=== PATIENT | female | born 1985 | race Caucasian/White ===

== ENCOUNTER 2020-08-27 18:08 | Emergency (ER) | payer MEDICAID ==
[~2020-08-27] VITALS: Ht 160 cm; Wt 72.5 kg
--- NOTE | 2020-08-27 18:19 | PHYS DOC ---
Past History Past Medical History: Anxiety, Arthritis, Fibromyalgia, Other General Adult HPI: HPI: "... I was mad and kicked some wood yesterday.. my Rt. foot still hurts..." " I was mad.. and I kick it repeatedly..." Patient is a 35 year old female who presents with above hx and complaints of Right fool injury., Patient localizes pain in right foot joints and metatarsal area of four and five the right foot. Cap refill is equal to left foot. Sensation is equal to left foot. Patient states pain is exacerbated upon walking. Patient does have past medical history of anxiety, depression, fibromyalgia,. The pt. follows with Damon Spencer. Review of Systems: Review of Systems: Constitutional: Denies fever or chills Eyes: Denies change in visual acuity HENT: Denies nasal congestion or sore throat Respiratory: Denies cough or shortness of breath Cardiovascular: Denies chest pain or edema GI: Denies abdominal pain, nausea, vomiting, bloody stools or diarrhea : Denies dysuria Musculoskeletal: Complains of right foot pain Integument: Denies rash Neurologic: Denies headache, focal weakness or sensory changes Endocrine: Denies polyuria or polydipsia Lymphatic: Denies swollen glands Psychiatric: Denies depression or anxiety Family History: Family History: Noncontributory to presentation Current Medications: Current Meds: See nursing for home meds Allergies: Allergies: No known drug allergies Physical Exam: PE: Constitutional: Well developed, well nourished, no acute distress, non-toxic appearance. [] HENT: Normocephalic, atraumatic, bilateral external ears normal, oropharynx moist, no oral exudates, nose normal. [] Eyes: PERRLA, EOMI, conjunctiva normal, no discharge. Glasses Neck: Normal range of motion, no tenderness, supple, no stridor. [] Cardiovascular:Heart rate regular rhythm, no murmur [] Lungs & Thorax: Bilateral breath sounds equal apex auscultation [] Abdomen: Bowel sounds normal, soft, no tenderness, no masses, no pulsatile jeovanny s. [] Skin: Warm, dry, no erythema, no rash. [] Back: No tenderness, no CVA tenderness. [] Extremities: No tenderness, no cyanosis, no clubbing, ROM intact, no edema. Except findings in right foot as per HPI Neurologic: Alert and oriented X 3, normal motor function, normal sensory function, no focal deficits noted. [] Psychologic: Affect anxious, judgement normal, mood normal. [] EKG: EKG: [] Radiology/Procedures: Radiology/Procedures: [][address] [id number] IMAGING REPORT Signed PATIENT: PEGGY RAZO ACCOUNT: [id number] : 1985 LOCATION: ER AGE: 35 SEX: F EXAM STATUS: REG ER ORD. PHYSICIAN: JENSNE DIAZ MD REASON: injury Rt foot PROCEDURE: FOOT RIGHT 3V EXAM: AP, oblique and lateral views right foot DATE: 08/27/2020 6:32 PM INDICATION: Reason: injury Rt foot / Spl. Instructions: / History: COMPARISON: No Prior FINDINGS/ IMPRESSION: No evidence of acute fracture or dislocation. Old/healed fracture third metatar stevan. No definite tarsometatarsal offset. If there is persistent clinical concern for fracture, follow-up radiographs in 10-14 days is recommended. Joint spaces are preserved without significant degenerative/proliferative change. Soft tissue swelling about the forefoot. Electronically signed by: Elbert Castanon MD (08/27/2020 7:18 PM) [facility] DICTATED AND SIGNED BY: ELBERT CASTANON MD DATE: 08/27/20 1907 CC: JENSEN DIAZ MD; TIFFANY JEFFERS ~MTH0 0 Heart Score: Risk Factors: Risk Factors: DM, Current or recent (<one month) smoker, HTN, HLP, family history of CAD, obesity. Risk Scores: Score 0 - 3: 2.5% MACE over next 6 weeks - Discharge Home Score 4 - 6: 20.3% MACE over next 6 weeks - Admit for Clinical Observation Score 7 - 10: 72.7% MACE over next 6 weeks - Early Invasive Strategies Course & Med Decision Making: Course & Med Decision Making Pertinent Labs and Imaging studies reviewed. (See chart for details) Patient use ice packs as needed. Elevate foot. Wear stiff shoe. Take Tylenol and ibuprofen for pain. Follow-up primary care. Mamadou-ray in 1 to 2 weeks if no improvement to evaluate for missed occult fracture. []1. Rt foot contusion Dragon Disclaimer: Dragon Disclaimer: This electronic medical record was generated, in whole or in part, using a voice recognition dictation system. Departure Departure: Referrals: TIFFANY JEFFERS (PCP) Scripts Hydrocodone/Ibuprofen (HYDROCODONE-IBUPROFEN 7.5-200 ) 1 Each Tablet 1 TAB PO PRN Q6HRS PRN for PAIN, #30 TAB 0 Refills Prov: JENSEN DIAZ MD 08/27/20 Mariano Disclaimer This chart was dictated in whole or in part using Voice Recognition software in a busy, high-work load, and often noisy Emergency Department environment. It may contain unintended and wholly unrecognized errors or omissions. JENSEN DIAZ MD Aug 27, 2020 18:19
[2020-08-27 18:20] VITALS: BP 134/79
--- NOTE | 2020-08-27 19:21 | RAD ---
EXAM: AP, oblique and lateral views right foot DATE: 08/27/2020 6:32 PM INDICATION: Reason: injury Rt foot / Spl. Instructions: / History: COMPARISON: No Prior FINDINGS/ IMPRESSION: No evidence of acute fracture or dislocation. Old/healed fracture third metatarsal. No definite tarso metatarsal offset. If there is persistent clinical concern for fracture, follow-up radiographs in 10- 14 days is recommended. Joint spaces are preserved without significant degenerative/proliferative change. Soft tissue swellin g about the forefoot. Electronically signed by: Elbert Curiel MD (08/27/2020 7:18 PM) [facility]
[2020-08-27] MEDS ORDERED: HYDR-1179 PO (19:23)
== END 2020-08-27 19:46 | disposition home or self-care (01) ==
LOC: ER 18:08
DX: S90.31XA Contusion of right foot, initial encounter (principal); M19.90 Unspecified osteoarthritis, unspecified site; M79.7 Fibromyalgia; W22.8XXA Striking against or struck by other objects, initial encounter; Y93.89 Activity, other specified; Y92.89 Other specified places as the place of occurrence of the external cause; Y99.8 Other external cause status
CPT/HCPCS: 73630; 99283

== ENCOUNTER 2020-09-24 10:11 | Emergency (ER) | payer MEDICAID ==
[~2020-09-24] VITALS: Ht 160 cm; Wt 73.0 kg
[~2020-09-24 10:11] MED LIST: HYDR-1179 PO
[2020-09-24 10:15] VITALS: BP 134/87
--- NOTE | 2020-09-24 10:36 | PHYS DOC ---
Past History Past Medical History: Anxiety, Arthritis, Fibromyalgia, Other Additional Past Medical Histor: sacroileitis, ADHD, agoraphobia Past Surgical History: Tonsillectomy Additional Past Surgical Histo: uterine ablasion, fallopian tubes removed. Alcohol Use: Occasionally Additional Alcohol Information: REPORTS HEAVY DRINKING UNTIL 2 WEEKS AGO, NOW OCCASIONAL Adult General Chief Complaint Chief Complaint: ABSCESS HPI HPI Patient is a 35-year-old female presenting for rectal pain. Patient reports noticing focal rectal pain near her anal sphincter yesterday evening approximately 5 PM after taking a bowel movement. Bowel rest makes better, attempting to have bowel movements and activity make worse. Pain is focal nonradiating and sharp in nature. States pain at rest is 5/10, with bowel movements or wiping it is 8 out of 10. She denies any known rectal bleeding, abscess formation or concerning drainage. Patient had trouble sleeping overnight and called primary care physician's nursing line today and was advised to be seen at nearest ER and upcoming 2 to 3 hours prompting her to travel to our facility for evaluation. Patient denies fever, chills, COVID-19 contact, chest pain, shortness of breath, abdominal pain, nausea or vomit. Patient admits " I think I have IBS because I alternate between episodes of diarrhea and constipation, I have been more constipated recently". She has history of hemorrhoids in the past, none of which have been thrombosed and responded to supportive care practices while she was Review of Systems Review of Systems Fourteen body systems of review of systems have been reviewed. See HPI for pertinent positives and negative responses, other denson all other systems are negative, non-pertinent or non-contributory Allergies Allergies Allergies Coded Allergies Type Severity Reaction Last Updated Verified gabapentin Allergy Unknown 09/24/20 Yes Physical Exam Physical Exam Constitutional: Well developed, well nourished, no acute distress, non-toxic appearance. HENT: Normocephalic, atraumatic, bilateral external ears normal, oropharynx moist, no oral exudates, nose normal. Eyes: PERRLA, EOMI, conjunctiva normal, no discharge. Neck: Normal range of motion, no tenderness, supple, no stridor. Cardiovascular: Heart rate regular per monitor Lungs & Thorax: No respiratory distress or accessory muscle use, bilateral chest rise Abdomen: Abdomen soft, non-tender, bowel sounds present in all quadrants, no guarding or rebound, nonacute abdomen. Rectal exam performed, significant for x3 external hemorrhoids none of which were thrombosed, no signs of abscess, anal sphincter intact Skin: Warm, dry, no erythema, no rash. Back: No tenderness, no CVA tenderness. Extremities: No tenderness, no cyanosis, no clubbing, ROM intact, no edema. Neurologic: Alert and oriented X 3, grossly normal motor & sensory function, no focal deficits noted. Psychologic: Anxious affect and mood Current Patient Data Vital Signs Vital Signs Date Time Temp Pulse Resp B/P (MAP) Pulse Ox O2 Delivery O2 Flow Rate FiO2 09/24/20 10:15 98.2 95 20 134/87 (103) 98 Room Air EKG EKG [] Radiology/Procedures Radiology/Procedures [] Heart Score HEART Score for Chest Pain: HEART Score for Chest Pain Response (Comments) Value History Slighlty/Non-Suspicious 0 Age < 45 0 Risk Factors 1 or 2 Risk Factors 1 Total 1 Risk Factors: Risk Factors: DM, Current or recent (<one month) smoker, HTN, HLP, family history of CAD, obesity. Risk Scores: Risk Factors: DM, Current or recent (<one month) smoker, HTN, HLP, family history of CAD, obesity. Course & Med Decision Making Course & Med Decision Making I discussed most likely diagnosis of external hemorrhoids that are nonthromb osed. I discussed need for supportive care practices and close outpatient follow-up regarding today's visit. I discussed there were no emergent/surgical findings nor need for further diagnostic work-up in ER. Strict return precautions were also discussed at length with good understanding by patient. Patient voiced understanding and agreement with the plan. Patient knows to come back for repeat evaluation if concerning signs or symptoms present prior to outpatient follow-up. Hemodynamically stable, ambulatory and well-appearing at time of disposition. Dragon Disclaimer Dragon Disclaimer This electronic medical record was generated, in whole or in part, using a voice recognition dictation system. Departure Departure: Impression: Primary Impression: External hemorrhoids without complication Disposition: 01 DC HOME SELF CARE/HOMELESS Condition: GOOD Referrals: TIFFANY JEFFERS (PCP) Patient Instructions: Hemorrhoids Additional Instructions: You were seen for hemorrhoids. You should make sure to keep your stools soft by drinking plenty of water and eating foods with plenty of fiber. You should use sitz baths and stool softeners as needed for pain. You can also use topical h emorrhoid preparation creams to alleviate your symptoms as well. As discussed, please contact your primary care physician and discuss ER visit today, you would benefit from repeat evaluation next week. Return to the ED if you develop heavy bleeding, pain, fever, abdominal pain, lightheadedness, chest pain, shortness of breath, or any other new or concerning symptoms. RYAN MEDINA DO Sep 24, 2020 10:36
== END 2020-09-24 10:50 | disposition home or self-care (01) ==
LOC: ER 10:11
DX: K64.4 Residual hemorrhoidal skin tags (principal); F41.9 Anxiety disorder, unspecified; M19.90 Unspecified osteoarthritis, unspecified site; M79.7 Fibromyalgia; F90.9 Attention-deficit hyperactivity disorder, unspecified type; Z88.8 Allergy status to other drugs, medicaments and biological substances
CPT/HCPCS: 99282

== ENCOUNTER 2021-03-01 16:53 | Emergency (ER) | payer MEDICAID ==
[~2021-03-01] VITALS: Ht 160 cm; Wt 71.0 kg
[2021-03-01] MEDS ORDERED: ONDANSETRON PF 4 MG/2 ML VIAL. IVP ONE (17:30)
[2021-03-01] MEDS ORDERED: IV NORMAL SALINE 1,000ML 1,000 ML IV ONE (17:30)
[2021-03-01 17:35] LABS: BASO # 0.1 x10^3/uL (0.0-0.2); BASO % 1 % (0-3); EOS % 0 % (0-3); HEMATOCRIT 43.6 % (36.0-47.0); HEMOGLOBIN 14.5 g/dL (12.0-15.5); LYMPH # 2.4 x10^3/uL (1.0-4.8); LYMPH % 20 % (24-48); MEAN CORPUSCULAR HEMOGLOBIN 28 pg (25-35); MEAN CORPUSCULAR HGB CONC 33 g/dL (31-37); MEAN CORPUSCULAR VOLUME 85 fL (79-100); MONO # 0.8 x10^3/uL (0.0-1.1); MONO % 6 % (0-9); NEUT # 8.7 x10^3uL (1.8-7.7); NEUT % 73 % (31-73); PLATELET COUNT 268 x10^3/uL (140-400); RED BLOOD COUNT 5.15 x10^6/uL (3.50-5.40); RED CELL DISTRIBUTION WIDTH 14.1 % (11.5-14.5); WHITE BLOOD COUNT 11.9 x10^3/uL (4.0-11.0)
--- NOTE | 2021-03-01 17:50 | PHYS DOC ---
Past History Past Medical History: Anxiety, Arthritis, Fibromyalgia, Other Additional Past Medical Histor: sacroileitis, ADHD, agoraphobia (HAYDE BECKFORD APRN) Past Surgical History: Tonsillectomy Additional Past Surgical Histo: uterine ablasion, fallopian tubes removed. (HAYDE BECKFORD APRN) Additional Smoking Information: VAPES Alcohol Use: Heavy (HAYDE BECKFORD APRN) General Adult EDM: Chief Complaint: ABDOMINAL PAIN HPI: HPI: Patient is a 36-year-old female presents with left lower quadrant abdominal pain for 1 week. Patient describes pain as a cramping, intermittent pain. Patient contacted her PCP who put her on a liquid diet for 24 hours. Patient states that her symptoms did improve at that time but came back as soon as she started eating. Patient also reports having diarrhea multiple times a day along with nausea. Denies taking anything for pain. Refusing pain medication at this time. Patient denies vomiting. Patient has history of IBS, PTSD, anxiety and depression. (HAYDE BECKFORD APRN) Review of Systems: Review of Systems: Constitutional: Denies fever or chills Eyes: Denies change in visual acuity HENT: Denies nasal congestion or sore throat Respiratory: Denies cough or shortness of breath Cardiovascular: Denies chest pain or edema GI: Reports abdominal pain, nausea, diarrhea. Denies vomiting, bloody stools : Denies dysuria Musculoskeletal: Denies back pain or joint pain Integument: Denies rash Neurologic: Denies headache, focal weakness or sensory changes Endocrine: Denies polyuria or polydipsia Lymphatic: Denies swollen glands Psychiatric: Reports history of depression or anxiety (HAYDE BECKFORD APRN) Current Medications: Current Meds: Current Medications Medications (Trade) Dose Ordered Sig/Karon Start Time Stop Time Status Last Admin Dose Admin Ondansetron HCl (Zofran) 4 mg 1X ONCE 03/01/21 17:30 03/01/21 17:31 DC 03/01/21 17:33 4 MG Sodium Chloride 1,000 ml @ 1,000 mls/hr 1X ONCE 03/01/21 17:30 03/01/21 18:29 03/01/21 17:33 1,000 MLS/HR (HAYDE BECKFORD APRN) Allergies: Allergies: Allergies Coded Allergies Type Severity Reaction Last Updated Verified amoxicillin Allergy Unknown 03/01/21 Yes gabapentin Allergy Unknown 09/24/20 Yes (HAYDE BECKFORD APRN) Physical Exam: PE: Constitutional: Well developed, well nourished, no acute distress, non-toxic appearance. HENT: Normocephalic, atraumatic, bilateral external ears normal, oropharynx moist, no oral exudates, nose normal. Eyes: PERRLA, EOMI, conjunctiva normal, no discharge. Neck: Normal range of motion, no tenderness, supple, no stridor. Cardiovascular:Heart rate regular rhythm, no murmur Lungs & Thorax: Bilateral breath sounds clear to auscultation Abdomen: Bowel sounds normal, soft, left lower quadrant tenderness Skin: Warm, dry, no erythema, no rash. Back: No tenderness, no CVA tenderness. Extremities: No tenderness, no cyanosis, no clubbing, ROM intact, no edema. Neurologic: Alert and oriented X 3, normal motor function, normal sensory function, no focal deficits noted. (HAYDE BECKFORD APRN) Current Patient Data: Labs: Laboratory Tests Test 03/01/21 17:35 POC Urine HCG, Qualitative hcg negative (Negative) Vital Signs: Vital Signs Date Time Temp Pulse Resp B/P (MAP) Pulse Ox O2 Delivery O2 Flow Rate FiO2 03/01/21 17:37 103 03/01/21 17:00 98.2 18 144/81 (102) 99 Room Air (HAYDE BECKFORD APRN) EKG: EKG: [] (HAYDE BECKFORD APRN) Radiology/Procedures: Radiology/Procedures: []Exam: CT of abdomen and pelvis without contrast INDICATION: Left lower quadrant abdominal pain TECHNIQUE: Sequential axial images through the abdomen and pelvis obtained without IV contrast. Sagittal and coronal reformatted images were reconstructed from the axial data and reviewed. Exposure: One or more of the following in the visualized dose reduction techniques were utilized for this examination: 1. Automated exposure control 2. Adjustment of the MA and/or KV according to patient size 3. Use of iterative of reconstructive technique Comparisons: None FINDINGS: Heart size is normal. No pericardial effusion. Visualized lung bases are clear. No pleural effusion. Evaluation of solid organs is limited secondary to noncontrast technique. Liver, spleen, pancreas, gallbladder and adrenals are unremarkable. No perinephric inflammation or hydronephrosis. No renal or ureteral calculi are identified. Bladder is decompressed not well evaluated. Uterus is not enlarged. A 3.8 cm masslike area anterior to the fundus. Large and small bowel are unremarkable. Appendix is nonidentified. No free intra-abdominal air or fluid. No obstruction. Abdominal aorta has a normal course and caliber. No enlarged intra-abdominal lymph nodes are identified. No suspicious osseous lesions or acute fractures. IMPRESSION: There is a 3.8 x 3.2 cm masslike area anterior to the fundus on the left. This i s nonspecific could relate to the ovary, an exophytic fibroid or even decompressed bowel. Ultrasound is recommended for further evaluation. Electronically signed by: Ever Carpenter MD (03/01/2021 6:25 PM) [facility] (HAYDE BECKFORD APRN) Heart Score: C/O Chest Pain: No Risk Factors: Risk Factors: DM, Current or recent (<one month) smoker, HTN, HLP, family history of CAD, obesity. Risk Scores: Score 0 - 3: 2.5% MACE over next 6 weeks - Discharge Home Score 4 - 6: 20.3% MACE over next 6 weeks - Admit for Clinical Observation Score 7 - 10: 72.7% MACE over next 6 weeks - Early Invasive Strategies (HAYDE BECKFORD APRN) Course & Med Decision Making: Course & Med Decision Making Pertinent Labs and Imaging studies reviewed. (See chart for details) [] 36-year-old female presents with left lower quadrant abdominal pain for 1 week. Patient reports she has had the symptoms in the past and had a colonoscopy and diagnosed with IBS. CT of abdomen pelvis showed there is a 3.8 x 3.2 cm masslike area anterior to the fundus on the left. Ultrasound ordered to rule out acute abnormalities. Ultrasound could not rule out fibroid. MRI is recommended. Informed patient of results. Follow-up needed tomorrow with car packer. UA negative for infection. All other labs unremarkable. (HAYDE BECKFORD APRN) Course & Med Decision Making Did not see or evaluate patient. Agree with NATURAL SCIENCES PROFESSOR's work-up and disposition per note. (KATIE FREGOSO MD) Dragon Disclaimer: Dragon Disclaimer: This electronic medical record was generated, in whole or in part, using a voice recognition dictation system. (BECKFORD,HAYDE STRAIGHT SLICING MACHINE OPERATOR) Departure Departure: Impression: Primary Impression: Left lower quadrant abdominal pain of unknown etiology Disposition: HOME / SELF CARE / HOMELESS Condition: STABLE Referrals: TIFFANY JEFFERS (PCP) Patient Instructions: Abdominal Pain Additional Instructions: You were seen in the emergency room for left lower abdominal pain. Ultrasound could not rule out exact cause of pain. You will need to make a appointment tomorrow with car packer for further evaluation. Please return emergency room with worsening symptoms or concerns. EMERGENCY DEPARTMENT GENERAL DISCHARGE INSTRUCTIONS Thank you for coming to [facility] (ED) today and trusting us with you care. We trust that you had a positivie experience in our Emergency Department. If you wish to speak to the department management, you may call the director at [phone]. YOUR FOLLOW UP INSTRUCTIONS ARE FOLLOWS: 1. Do you have a private Doctor? If you do not have a private doctor, please ask for a resource list of physicians or clinics that may be able to assist you with follow up care. 2. The Emergency Physician has interpreted your x-rays. The X-Ray specialist will also review them. If there is a change in the findings, you will be notified in 48 hours when at all possible. 3. A lab test or culture has been done, your results will be reviewed and you will be notified if you need a change in treatment. ADDITIONAL INSTRUCTIONS AND INFORMATION: 1. Your care today has been supervised by a physician who is specially trained in emergency care. Many problems require more than one evaluation for a complete diagnosis and treatment. We recommend that you schedule your follow up appointment as recommended to ensure complete treatment of you illness or injury. If you are unable to obtain follow up care and continue to have a problem, or if your condition worsens, we recommend that you return to the ED. 2. We are not able to safely determine your condition over the phone nor are we able to give sound medical advice over the phone. For these safety reasons, if you call for medical advice we will ask you to come to the ED for further evaluation. 3. If you have any questions regarding these discharge instructions please call the ED at [phone]. SAFETY INFORMATION: In the interest of safety, wellness, and injury prevention; we encourage you to wear your sealbelt, if you smoke; quite smoking, and we encourage family to use a protective helmet for bicycling and other sporting events that present an increased risk for head injury. IF YOUR SYMPTOMS WORSEN OR NEW SYMPTOMS DEVELOP, OR YOU HAVE CONCERNS ABOUT YOUR CONDITION; OR IF YOUR CONDITION WORSENS WHILE YOU ARE WAITING FOR YOUR FOLLOW UP APPOINTMENT; EITHER CONTACT YOUR PRIMARY CARE DOCTOR, THE PHYSICIAN WHOSE NAME AND NUMBER YOU WERE GIVEN, OR RETURN TO THE ED IMMEDIATELY. Scripts Hydrocodone Bit/Acetaminophen (HYDROCODONE-APAP 5-325 ) 1 Each Tablet 1 TAB PO PRN Q6HRS PRN for PAIN for 3 Days, #12 TAB 0 Refills Prov: HAYDE BECKFORD APRN 03/01/21 HAYDE BECKFORD APRN Mar 01, 2021 17:50 KATIE FREGOSO MD Mar 02, 2021 00:35
[2021-03-01 18:18] LABS: BILIRUBIN,URINE SMALL (NEG); CLARITY,URINE CLEAR; COLOR,URINE YELLOW; GLUCOSE,URINE NEG (NEG)
[2021-03-01 18:19] LABS: NITRITE,URINE NEG (NEG); UROBILINOGEN,URINE 0.2 mg/dL (0.2 mg/dL)
[2021-03-01 18:21] LABS: AMORPHOUS SEDIMENT,UR PRESENT /HPF; BACTERIA,URINE 0 /HPF (0-FEW); RBC,URINE 0 /HPF (0-2); SQUAMOUS EPITHELIAL CELL,UR FEW /LPF; WBC,URINE 0 /HPF (0-4)
[2021-03-01 18:21] LABS: CALCIUM 9.3 mg/dL (8.5-10.1); CREATININE 0.9 mg/dL (0.6-1.0); GFR 71.3; POTASSIUM 3.7 mmol/L (3.5-5.1)
[2021-03-01 18:27] LABS: ALBUMIN/GLOBULIN RATIO 1.1 (1.0-1.7); TOTAL BILIRUBIN 0.5 mg/dL (0.2-1.0); TOTAL PROTEIN 7.7 g/dL (6.4-8.2)
--- NOTE | 2021-03-01 18:27 | RAD ---
Exam: CT of abdomen and pelvis without contrast INDICATION: Left lower quadrant abdominal pain TECHNIQUE: Sequential axial images through the abdomen and pelvis obtained without IV contrast. Sagit radha and coronal reformatted images were reconstructed from the axial data and reviewed. Exposure: One or more of the following in the visualized dose reduction techniques were utilized for this examination: 1. Automated exposure control 2. Adjustment of the MA and/or KV according to patient size 3. Use of iterative of reconstructive technique Comparisons: None FINDINGS: Heart size is normal. No pericardial effusion. Visualized lung bases are clear. No pleural effusion. Evaluation of solid organs is limited secondary to noncontrast technique. Liver, spleen, pancreas, gallbladder and adrenals are unremarkable. No perinephric inflammation or hydronephrosis. No renal or ureteral calculi are identified. Bladder is decompressed not well evaluated. Uterus is not enlarged. A 3.8 cm masslike area anterior t o the fundus. Large and small bowel are unremarkable. Appendix is nonidentified. No free intra-abdominal air or flu id. No obstruction. Abdominal aorta has a normal course and caliber. No enlarged intra-abdominal lymph nodes are identified. No suspicious osseous lesions or acute fractures. IMPRESSION: There is a 3.8 x 3.2 cm masslike area anterior to the fundus on the left. This is nonspecific could r elate to the ovary, an exophytic fibroid or even decompressed bowel. Ultrasound is recommended for fu rther evaluation. Electronically signed by: Ever Carpenter MD (03/01/2021 6:25 PM) [facility]
--- NOTE | 2021-03-01 20:54 | RAD ---
EXAM: ULTRASOUND PELVIS INDICATION: Left lower quadrant pain. COMPARISON: None available. TECHNIQUE: Transabdominal and transvaginal sonography was performed. FINDINGS: The uterus measures 8.1 x 4.5 x 3.6 cm. The endometrium measures 2.6 cm. There is no focal myometria l abnormality The right ovary measures 4.2 x 2.4 x 2.1 cm. Vascular flow identified within the right ovary. The left ovary measures 2.3 x 1.9 x 1.8 cm. Vascular flow identified within the right ovary. There is no free fluid. There is a mass anterior to the uterine fundus measuring 4.4 x 4.2 x 3.6 cm. This mass has internal v ascularity. IMPRESSION: 1. Redemonstration of masslike area anterior to the uterine fundus not definitively characterized as an exophytic fibroid. Further evaluation with pelvic MRI with contrast is recommended. 2. Normal appearance of the ovaries. No evidence for torsion. Electronically signed by: Ever Carpenter MD (03/01/2021 8:52 PM) [facility]
[2021-03-01] MEDS ORDERED: HYDR-2155 PO (21:14)
[2021-03-01] MEDS ORDERED: MORPHINE SULFATE 4 MG/ML DISP.SYRIN. IV ONE (21:15)
[2021-03-01 21:39] VITALS: BP 140/75
== END 2021-03-01 21:45 | disposition home or self-care (01) ==
LOC: ER 16:53
DX: R10.32 Left lower quadrant pain (principal); R19.7 Diarrhea, unspecified; R11.0 Nausea; F41.9 Anxiety disorder, unspecified; M19.90 Unspecified osteoarthritis, unspecified site; M79.7 Fibromyalgia; K58.9 Irritable bowel syndrome, unspecified; F32.9 Major depressive disorder, single episode, unspecified; F43.10 Post-traumatic stress disorder, unspecified; F17.200 Nicotine dependence, unspecified, uncomplicated; F10.20 Alcohol dependence, uncomplicated; Z88.1 Allergy status to other antibiotic agents; Z88.8 Allergy status to other drugs, medicaments and biological substances; Y90.9 Presence of alcohol in blood, level not specified
CPT/HCPCS: 36415; 74176; 76830; 76856; 80053; 81001; 81025; 83690; 85025; 96361; 96374; 96375; 99285; J2270; J2405; J7030

== ENCOUNTER 2021-04-18 16:25 | Emergency (ER) | payer MEDICAID ==
[~2021-04-18] VITALS: Ht 160 cm; Wt 71.0 kg
[~2021-04-18 16:25] MED LIST changes: +HYDR-2155 PO
[2021-04-18 16:34] VITALS: BP 140/75
[2021-04-18] MEDS ORDERED: HYDROcodone/APAP 5/325MG 1 TAB TABLET PO ONE (16:45)
--- NOTE | 2021-04-18 17:00 | RAD ---
XR HAND_RIGHT 3 VIEWS Clinical indications: Reason: hand smashed between table and wall pain Findings: No acute fracture or dislocation or osteolytic process is evident. IMPRESSION: No acute osseous abnormality is evident. Electronically signed by: Tommie Escalera MD (04/18/2021 4:57 PM) [id number]
--- NOTE | 2021-04-18 17:09 | PHYS DOC ---
Past History Past Medical History: Anxiety, Arthritis, Fibromyalgia, Other Additional Past Medical Histor: sacroileitis, ADHD, agoraphobia, PTSD (HAYDE BECKFORD APRN) Past Surgical History: Tonsillectomy Additional Past Surgical Histo: uterine ablasion, fallopian tubes removed. (HAYDE BECKFORD APRN) Additional Smoking Information: Vape Alcohol Use: Occasionally (HAYDE BECKFORD APRN) General Adult EDM: Chief Complaint: HAND PROBLEM HPI: HPI: Patient is a 36-year-old female presents with right hand pain. Patient states that she got her hand stuck between a table in the wall while trying to move it. Patient denies take anything for pain. Patient has full range of motion. History of anxiety, depression, fibromyalgia (HAYDE BECKFORD APRN) Review of Systems: Review of Systems: Constitutional: Denies fever or chills Eyes: Denies change in visual acuity HENT: Denies nasal congestion or sore throat Respiratory: Denies cough or shortness of breath Cardiovascular: Denies chest pain or edema GI: Denies abdominal pain, nausea, vomiting, bloody stools or diarrhea : Denies dysuria Musculoskeletal: Denies back pain or joint pain Integument: Bruising to top of right hand Neurologic: Denies headache, focal weakness or sensory changes Endocrine: Denies polyuria or polydipsia Lymphatic: Denies swollen glands Psychiatric: Reports history of depression anxiety (HAYDE BECKFORD APRN) Current Medications: Current Meds: Current Medications Medications (Trade) Dose Ordered Sig/Karon Start Time Stop Time Status Last Admin Dose Admin Acetaminophen/ Hydrocodone Bitart (Lortab 5/325) 1 tab 1X ONCE 04/18/21 16:45 04/18/21 16:52 DC (HAYDE BECKFORD APRN) Allergies: Allergies: Allergies Coded Allergies Type Severity Reaction Last Updated Verified amoxicillin Allergy Unknown 03/01/21 Yes gabapentin Allergy Unknown 09/24/20 Yes (HAYDE BECKFORD APRN) Physical Exam: PE: Constitutional: Well developed, well nourished, no acute distress, non-toxic appearance. [] HENT: Normocephalic, atraumatic, bilateral external ears normal, oropharynx moist, no oral exudates, nose normal. [] Eyes: PERRLA, EOMI, conjunctiva normal, no discharge. [] Neck: Normal range of motion, no tenderness, supple, no stridor. [] Cardiovascular:Heart rate regular rhythm, no murmur [] Lungs & Thorax: Bilateral breath sounds clear to auscultation [] Abdomen: Bowel sounds normal, soft, no tenderness, no masses, no pulsatile jeovanny s. [] Skin: Warm, dry, no erythema, no rash. [] Back: No tenderness, no CVA tenderness. [] Extremities: Right hand tenderness, no cyanosis, no clubbing, ROM intact, no edema. [] Neurologic: Alert and oriented X 3, normal motor function, normal sensory function, no focal deficits noted. [] Psychologic: Affect normal, judgement normal, mood normal. [] (HAYDE BECKFORD APRN) Current Patient Data: Vital Signs: Vital Signs Date Time Temp Pulse Resp B/P (MAP) Pulse Ox O2 Delivery O2 Flow Rate FiO2 04/18/21 16:34 98.3 84 16 140/75 98 Room Air (HAYDE BECKFORD APRN) EKG: EKG: [] (HAYDE BECKFORD APRN) Radiology/Procedures: Radiology/Procedures: []XR HAND_RIGHT 3 VIEWS Clinical indications: Reason: hand smashed between table and wall pain Findings: No acute fracture or dislocation or osteolytic process is evident. IMPRESSION: No acute osseous abnormality is evident. Electronically signed by: Tommie Escalera MD (04/18/2021 4:57 PM) [id number] (HAYDE BECKFORD APRN) Heart Score: C/O Chest Pain: No Risk Factors: Risk Factors: DM, Current or recent (<one month) smoker, HTN, HLP, family history of CAD, obesity. Risk Scores: Score 0 - 3: 2.5% MACE over next 6 weeks - Discharge Home Score 4 - 6: 20.3% MACE over next 6 weeks - Admit for Clinical Observation Score 7 - 10: 72.7% MACE over next 6 weeks - Early Invasive Strategies (HAYDE BECKFORD APRN) Course & Med Decision Making: Course & Med Decision Making Pertinent Labs and Imaging studies reviewed. (See chart for details) [] 36-year-old female presents with right hand pain. Patient states that she got her hand stuck between a table, and the wall trying to move it. Patient states she did not take anything at home for discomfort. Patient still has full range of motion. Radial pulses intact. Patient given 5/325, hydrocodone for pain. Hand x-rays negative for any acute abnormalities. Patient given rice instructions. Ibuprofen and Tylenol at home. (HAYDE BECKFORD APRN) Course & Med Decision Making Did not see or evaluate patient. 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 (KATIE FREGOSO MD) Dragon Disclaimer: Dragon Disclaimer: This electronic medical record was generated, in whole or in part, using a voice recognition dictation system. (HAYDE BECKFORD APRN) Departure Departure: Impression: Primary Impression: Hand contusion Qualified Codes: S60.221A - Contusion of right hand, initial encounter Disposition: HOME / SELF CARE / HOMELESS Condition: STABLE Referrals: TIFFANY JEFFERS (PCP) Patient Instructions: Hand Contusion, [id number] Additional Instructions: You are seen in the emergency room for right hand pain. X-rays were negative for acute abnormality. Rest, ice, elevate. Use ibuprofen and Tylenol at home for discomfort. Follow up with your PCP if you are still having issues. Turn to emergency room with worsening symptoms or concerns EMERGENCY DEPARTMENT GENERAL DISCHARGE INSTRUCTIONS Thank you for coming to [facility] (ED) today and trusting us with you care. We trust that you had a positivie experience in our Emergency Department. If you wish to speak to the department management, you may call the director at [phone]. YOUR FOLLOW UP INSTRUCTIONS ARE FOLLOWS: 1. Do you have a private Doctor? If you do not have a private doctor, please ask for a resource list of physicians or clinics that may be able to assist you with follow up care. 2. The Emergency Physician has interpreted your x-rays. The X-Ray specialist will also review them. If there is a change in the findings, you will be notified in 48 hours when at all possible. 3. A lab test or culture has been done, your results will be reviewed and you will be notified if you need a change in treatment. ADDITIONAL INSTRUCTIONS AND INFORMATION: 1. Your care today has been supervised by a physician who is specially trained in emergency care. Many problems require more than one evaluation for a complete diagnosis and treatment. We recommend that you schedule your follow up appointment as recommended to ensure complete treatment of you illness or injury. If you are unable to obtain follow up care and continue to have a problem, or if your condition worsens, we recommend that you return to the ED. 2. We are not able to safely determine your condition over the phone nor are we able to give sound medical advice over the phone. For these safety reasons, if you call for medical advice we will ask you to come to the ED for further evaluation. 3. If you have any questions regarding these discharge instructions please call the ED at [phone]. SAFETY INFORMATION: In the interest of safety, wellness, and injury prevention; we encourage you to wear your sealbelt, if you smoke; quite smoking, and we encourage family to use a protective helmet for bicycling and other sporting events that present an increased risk for head injury. IF YOUR SYMPTOMS WORSEN OR NEW SYMPTOMS DEVELOP, OR YOU HAVE CONCERNS ABOUT YOUR CONDITION; OR IF YOUR CONDITION WORSENS WHILE YOU ARE WAITING FOR YOUR FOLLOW UP APPOINTMENT; EITHER CONTACT YOUR PRIMARY CARE DOCTOR, THE PHYSICIAN WHOSE NAME AND NUMBER YOU WERE GIVEN, OR RETURN TO THE ED IMMEDIATELY. HAYDE BECKFORD APRN Apr 18, 2021 17:09 KATIE FREGOSO MD Apr 19, 2021 19:35
[2021-04-18] MEDS ORDERED: ONDANSETRON ODT 4 MG TAB.RAPDIS ONE (17:10)
== END 2021-04-18 17:21 | disposition home or self-care (01) ==
LOC: ER 16:25
DX: S60.221A Contusion of right hand, initial encounter (principal); F41.9 Anxiety disorder, unspecified; M19.90 Unspecified osteoarthritis, unspecified site; M79.7 Fibromyalgia; F17.200 Nicotine dependence, unspecified, uncomplicated; Z88.1 Allergy status to other antibiotic agents; Z88.8 Allergy status to other drugs, medicaments and biological substances; W23.0XXA Caught, crushed, jammed, or pinched between moving objects, initial encounter; Y93.89 Activity, other specified; Y92.89 Other specified places as the place of occurrence of the external cause; Y99.8 Other external cause status
CPT/HCPCS: 73130; 99283

== ENCOUNTER 2021-04-29 19:47 | Emergency (ER) | payer MEDICAID ==
[~2021-04-29] VITALS: Ht 160 cm; Wt 68.2 kg
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
[2021-04-29] MEDS ORDERED: IV RINGERS SOLUTION,LACTATED 1,000 ML IV SCH ×2 (20:00→21:30)
[2021-04-29] MEDS ORDERED: MAGNESIUM HYDROXIDE 2,400 MG/30 ML ORAL.SUSP. PO ONE (20:15)
[2021-04-29] MEDS ORDERED: SODIUM BICARB ADULT 8.4% 50 MEQ/50 ML DISP.SYRIN. IV ONE (20:15)
[2021-04-29 20:40] LABS: BASO % 1 % (0-3); EOS % 0 % (0-3); HEMATOCRIT 43.3 % (36.0-47.0); HEMOGLOBIN 14.2 g/dL (12.0-15.5); LYMPH # 1.6 x10^3/uL (1.0-4.8); LYMPH % 21 % (24-48); MEAN CORPUSCULAR HEMOGLOBIN 28 pg (25-35); MEAN CORPUSCULAR HGB CONC 33 g/dL (31-37); MEAN CORPUSCULAR VOLUME 86 fL (79-100); MONO # 0.5 x10^3/uL (0.0-1.1); MONO % 6 % (0-9); NEUT # 5.3 x10^3uL (1.8-7.7); NEUT % 72 % (31-73); PLATELET COUNT 251 x10^3/uL (140-400); RED BLOOD COUNT 5.06 x10^6/uL (3.50-5.40); RED CELL DISTRIBUTION WIDTH 14.4 % (11.5-14.5); WHITE BLOOD COUNT 7.4 x10^3/uL (4.0-11.0)
[2021-04-29 20:41] LABS: CALCIUM 8.7 mg/dL (8.5-10.1); CREATININE 0.7 mg/dL (0.6-1.0); GFR 95.2; POTASSIUM 3.4 mmol/L (3.5-5.1)
[2021-04-29 20:45] LABS: ETHANOL 10 mg/dL (0-10); SALIC 4.9 mg/dL (2.8-20.0)
[2021-04-29 20:54] LABS: ALBUMIN 4.2 g/dL (3.4-5.0); DIRECT BILIRUBIN 0.1 mg/dL (0.0-0.2); TOTAL BILIRUBIN 0.4 mg/dL (0.2-1.0); TOTAL PROTEIN 7.4 g/dL (6.4-8.2)
--- NOTE | 2021-04-29 21:14 | RAD ---
Exam: Chest one view INDICATION: Dyspnea TECHNIQUE: Frontal view of the chest Comparisons: None FINDINGS: The cardiomediastinal silhouette and pulmonary vessels are within normal limits. The lung and pleural spaces are clear. IMPRESSION: No acute cardiopulmonary process. Electronically signed by: Ever Carpenter MD (04/29/2021 9:12 PM) ANSHUL
[2021-04-29 21:27] LABS: ACETAMIN < 2.0 mcg/mL (10-30)
[2021-04-29] MEDS ORDERED: ONDANSETRON PF 4 MG/2 ML VIAL. IVP PRN (21:30)
--- NOTE | 2021-04-29 21:45 | EKG ---
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
[2021-04-30 01:19] VITALS: BP 111/73
[2021-04-30 01:22] LABS: BARBITURATES NEG (NEG); BENZODIAZEPINES POS (NEG); CANNABINOIDS POS (NEG); COCAINE NEG (NEG); METHADONE NEG (NEG); OPIATES NEG (NEG); PHENCYCLIDINE NEG (NEG)
[2021-04-30 01:29] LABS: AMPHETAMINE/METHAMPHETAMINE POS (NEG)
[2021-04-30] MEDS ORDERED: ARIP5TAB13 PO (01:32)
[2021-04-30] MEDS ORDERED: VENL150C PO (01:32)
[2021-04-30] MEDS ORDERED: DEXT20CA7 PO (01:32)
[2021-04-30] MEDS ORDERED: DIAZ5TAB PO (01:32)
[2021-04-30] MEDS ORDERED: VENL37.5 PO (01:32)
[2021-04-30 01:34] LABS: BILIRUBIN,URINE NEG (NEG); CLARITY,URINE CLEAR; COLOR,URINE YELLOW; GLUCOSE,URINE NEG (NEG); NITRITE,URINE NEG (NEG); UROBILINOGEN,URINE 0.2 mg/dL (0.2 mg/dL)
[2021-04-30 01:35] LABS: BACTERIA,URINE 0 /HPF (0-FEW); RBC,URINE 0 /HPF (0-2); SQUAMOUS EPITHELIAL CELL,UR FEW /LPF; WBC,URINE 0 /HPF (0-4)
--- NOTE | 2021-04-30 02:17 | EKG ---
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
[2021-04-30] MEDS: IPRATRPIUM/ALBUTEROL 0.5/2.5MG 3 ML NEBU. NEB SCH ×3 (06:33→13:52)
[2021-04-30 07:13] VITALS: BP 102/52
[2021-04-30] MEDS ORDERED: LORazepam 1 MG TABLET PO ONE (09:30)
[2021-04-30] MEDS ORDERED: VENLAFAXINE 100 MG TABLET. PO ONE (10:00)
[2021-04-30] MEDS ORDERED: VENLAFAXINE XR 37.5 MG CAP.ER.24H. PO ONE (10:00)
[2021-04-30 11:13] VITALS: BP 107/54
[2021-04-30 13:30] VITALS: BP 113/67
[2021-04-30] MEDS ORDERED: HYDROcodone/APAP 5/325MG 1 TAB TABLET PO ONE (14:00)
== END 2021-04-30 14:01 ==
LOC: ER 19:47
DX: T43.212A Poisoning by selective serotonin and norepinephrine reuptake inhibitors, intentional self-harm, initial encounter (principal); R45.851 Suicidal ideations; F32.9 Major depressive disorder, single episode, unspecified; F41.9 Anxiety disorder, unspecified; M19.90 Unspecified osteoarthritis, unspecified site; M79.7 Fibromyalgia; F43.10 Post-traumatic stress disorder, unspecified; Z20.822 Contact with and (suspected) exposure to COVID-19; Z88.8 Allergy status to other drugs, medicaments and biological substances; Z88.1 Allergy status to other antibiotic agents; Y92.89 Other specified places as the place of occurrence of the external cause
CPT/HCPCS: 36415; 71045; 80048; 80076; 80307; 80329; 81001; 81025; 82550; 83880; 84443; 84484; 85025; 87426; 93005; 96361; 96374; 99285; G0480; J7120; U0003

== ENCOUNTER → 2021-08-05 | Outpatient (CLI) | payer MEDICAID ==
[~2021-08-05] MED LIST changes: +ARIP5TAB13 PO; +DEXT20CA7 PO; +DIAZ5TAB PO; +VENL150C PO; +VENL37.5 PO
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
== END ==
LOC: RAD 10:46
PROVIDERS: ATTEND Nurse Practitioner Family
DX: M79.642 Pain in left hand (principal)
CPT/HCPCS: 73110; 73130

== ENCOUNTER 2021-08-08 15:49 | Emergency (ER) | payer MEDICAID ==
[~2021-08-08] VITALS: Ht 160 cm; Wt 68.2 kg
[2021-08-08 15:49] VITALS: BP 133/75
--- NOTE | 2021-08-08 16:06 | PHYS DOC ---
Past History Past Medical History: Anxiety, Arthritis, Depression, Fibromyalgia, Other Additional Past Medical Histor: sacroileitis, ADHD, agoraphobia, PTSD Past Surgical History: Tonsillectomy Additional Past Surgical Histo: uterine ablasion, fallopian tubes removed. Alcohol Use: Occasionally General Adult EDM: Chief Complaint: HEADACHE HPI: HPI: 36-year-old female presents with headache. Patient headache this morning and has increased throughout the day. It is similar to her previous migraines. She does not frequently get migraines. It is a throbbing pressure sensation in the front of her head with some radiation into the occipital region. She is sensitive to bright light. She took a Flexeril at home. She cannot take any NSAIDs right now because she has a colonoscopy scheduled in 2 days. She does not want to miss this appointment. She has had nausea and vomiting. She denies fever or chills. Review of Systems: Review of Systems: Constitutional: Denies fever or chills Eyes: Denies change in visual acuity HENT: Denies nasal congestion or sore throat Respiratory: Denies cough or shortness of breath Cardiovascular: Denies chest pain or edema GI: Denies abdominal pain, nausea, vomiting, bloody stools or diarrhea : Denies dysuria Musculoskeletal: Denies back pain or joint pain Integument: Denies rash Neurologic: Headache. Denies focal weakness or sensory changes Endocrine: Denies polyuria or polydipsia Lymphatic: Denies swollen glands Psychiatric: Denies depression or anxiety Allergies: Allergies: Allergies Coded Allergies Type Severity Reaction Last Updated Verified amoxicillin Allergy Unknown 04/29/21 Yes clavulanic acid Allergy Unknown 04/29/21 Yes gabapentin Allergy Unknown 04/29/21 Yes Physical Exam: PE: Constitutional: Well developed, well nourished, no acute distress, non-toxic appearance. [] HENT: Normocephalic, atraumatic, bilateral external ears normal, oropharynx moist, no oral exudates, nose normal. [] Eyes: PERRLA, EOMI, conjunctiva normal, no discharge. Photophobia. [] Neck: Normal range of motion, no tenderness, supple, no stridor. [] Cardiovascular: Heart rate regular rhythm, no murmur [] Lungs & Thorax: Bilateral breath sounds clear to auscultation [] Abdomen: Bowel sounds normal, soft, no tenderness, no masses, no pulsatile masses. [] Skin: Warm, dry, no erythema, no rash. [] Back: No tenderness, no CVA tenderness. [] Extremities: No tenderness, no cyanosis, no clubbing, ROM intact, no edema. [] Neurologic: Alert and oriented X 3, normal motor function, normal sensory function, no focal deficits noted. [] Psychologic: Affect normal, judgement normal, mood normal. [] EKG: EKG: [] Radiology/Procedures: Radiology/Procedures: [] Heart Score: C/O Chest Pain: N/A Risk Factors: Risk Factors: DM, Current or recent (<one month) smoker, HTN, HLP, family history of CAD, obesity. Risk Scores: Score 0 - 3: 2.5% MACE over next 6 weeks - Discharge Home Score 4 - 6: 20.3% MACE over next 6 weeks - Admit for Clinical Observation Score 7 - 10: 72.7% MACE over next 6 weeks - Early Invasive Strategies Course & Med Decision Making: Course & Med Decision Making Pertinent Labs and Imaging studies reviewed. (See chart for details) The patient's labs are unremarkable. For her headache I given her 1 L normal saline, 10 mg of Reglan, 25 mg of Benadryl. Her headache has improved. She is stable for discharge at this time. [] Mariano Disclaimer: Mariano Disclaimer: This electronic medical record was generated, in whole or in part, using a voice recognition dictation system. Departure Departure: Impression: Primary Impression: Migraine headache Qualified Codes: G43.019 - Migraine without aura, intractable, without status migrainosus Disposition: HOME / SELF CARE / HOMELESS Condition: IMPROVED Referrals: TIFFANY JEFFERS (PCP) Patient Instructions: Migraine Headache, [id number] TANNER OSBORN DO Aug 08, 2021 16:06
[2021-08-08] MEDS: IV NORMAL SALINE 1,000ML 1,000 ML IV ONE (16:44)
[2021-08-08] MEDS: METOCLOPRAMIDE HCL 10 MG/2 ML VIAL. IVP ONE (16:44)
[2021-08-08] MEDS: diphenhydrAMINE 50 MG/ML VIAL IVP ONE (16:44)
[2021-08-08 17:02] LABS: BASO % 0 % (0-3); EOS % 0 % (0-3); HEMATOCRIT 41.8 % (36.0-47.0); HEMOGLOBIN 13.9 g/dL (12.0-15.5); LYMPH # 1.6 x10^3/uL (1.0-4.8); LYMPH % 23 % (24-48); MEAN CORPUSCULAR HEMOGLOBIN 28 pg (25-35); MEAN CORPUSCULAR HGB CONC 33 g/dL (31-37); MEAN CORPUSCULAR VOLUME 84 fL (79-100); MONO # 0.7 x10^3/uL (0.0-1.1); MONO % 9 % (0-9); NEUT # 4.8 x10^3uL (1.8-7.7); NEUT % 67 % (31-73); PLATELET COUNT 250 x10^3/uL (140-400); RED BLOOD COUNT 4.99 x10^6/uL (3.50-5.40); RED CELL DISTRIBUTION WIDTH 13.8 % (11.5-14.5); WHITE BLOOD COUNT 7.1 x10^3/uL (4.0-11.0)
[2021-08-08 17:12] LABS: CALCIUM 8.7 mg/dL (8.5-10.1); CREATININE 0.8 mg/dL (0.6-1.0); GFR 81.6; POTASSIUM 3.7 mmol/L (3.5-5.1)
[2021-08-08 17:19] LABS: ALBUMIN 3.9 g/dL (3.4-5.0); ALBUMIN/GLOBULIN RATIO 1.1 (1.0-1.7); TOTAL BILIRUBIN 0.2 mg/dL (0.2-1.0); TOTAL PROTEIN 7.6 g/dL (6.4-8.2)
== END 2021-08-08 17:43 | disposition home or self-care (01) ==
LOC: ER 15:49
DX: G43.019 Migraine without aura, intractable, without status migrainosus (principal); F41.9 Anxiety disorder, unspecified; M19.90 Unspecified osteoarthritis, unspecified site; M79.7 Fibromyalgia; F43.10 Post-traumatic stress disorder, unspecified; Z88.1 Allergy status to other antibiotic agents; Z88.8 Allergy status to other drugs, medicaments and biological substances
CPT/HCPCS: 36415; 80053; 85025; 96361; 96374; 96375; 99284; J1200; J2765; J7030

== ENCOUNTER 2021-08-25 22:44 | Emergency (ER) | payer MEDICAID ==
[~2021-08-25] VITALS: Ht 160 cm; Wt 66.3 kg
[2021-08-25 23:02] VITALS: BP 131/96
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
== END 2021-08-26 00:14 | disposition home or self-care (01) ==
LOC: ER 22:44
DX: Z00.8 Encounter for other general examination (principal); F41.9 Anxiety disorder, unspecified; M19.90 Unspecified osteoarthritis, unspecified site; F32.9 Major depressive disorder, single episode, unspecified; M79.7 Fibromyalgia; G43.909 Migraine, unspecified, not intractable, without status migrainosus; F90.2 Attention-deficit hyperactivity disorder, combined type; Z87.891 Personal history of nicotine dependence; Z88.1 Allergy status to other antibiotic agents; Z88.8 Allergy status to other drugs, medicaments and biological substances
CPT/HCPCS: 99281

== ENCOUNTER 2021-10-11 07:54 | Emergency (ER) | payer MEDICAID ==
[~2021-10-11] VITALS: Ht 160 cm; Wt 66.3 kg
[2021-10-11 08:15] VITALS: BP 132/81
[2021-10-11] MEDS ORDERED: CLIN-95 PO (08:21)
--- NOTE | 2021-10-11 08:21 | PHYS DOC ---
Past History Past Medical History: Anxiety, Arthritis, Depression, Fibromyalgia, Migraines, Other Additional Past Medical Histor: sacroileitis, ADHD, agoraphobia, PTSD, borderline personality disorder Past Surgical History: Tonsillectomy Additional Past Surgical Histo: uterine ablasion, fallopian tubes removed. Smoking: Cigarettes, Quit Greater Than 1 Year Alcohol Use: Occasionally Drug Use: None General Adult EDM: Chief Complaint: DENTAL PROBLEM HPI: HPI: 36-year-old female presents with right upper dental pain. The patient has a molar with a crown on it but the gums have receded. She is scheduled to see her dentist on Monday. She presents today because she had a tough time sleeping last night due to pain and swelling of the right side of her face. She is mostl y concerned about infection due to the swelling. She would like to start an antibiotic if necessary prior to her dental visit. She has no other complaints this time. Review of Systems: Review of Systems: Constitutional: Denies fever or chills Eyes: Denies change in visual acuity HENT: Right upper dental pain Respiratory: Denies cough or shortness of breath Cardiovascular: Denies chest pain or edema GI: Denies abdominal pain, nausea, vomiting, bloody stools or diarrhea : Denies dysuria Musculoskeletal: Denies back pain or joint pain Integument: Denies rash Neurologic: Denies headache, focal weakness or sensory changes Endocrine: Denies polyuria or polydipsia Lymphatic: Denies swollen glands Psychiatric: Denies depression or anxiety Allergies: Allergies: Allergies Coded Allergies Type Severity Reaction Last Updated Verified amoxicillin Allergy Unknown 08/25/21 Yes clavulanic acid Allergy Unknown 08/25/21 Yes gabapentin Allergy Unknown 08/25/21 Yes Physical Exam: PE: Constitutional: Well developed, well nourished, no acute distress, non-toxic appearance. [] HENT: Normocephalic, atraumatic, bilateral external ears normal, oropharynx moist, no oral exudates, nose normal. Gum swelling around tooth #1, no palpable abscess, exposed tooth between crown and gums. [] Eyes: PERRLA, EOMI, conjunctiva normal, no discharge. [] Neck: Normal range of motion, no tenderness, supple, no stridor. [] Cardiovascular: Heart rate regular rhythm, no murmur [] Lungs & Thorax: Bilateral breath sounds clear to auscultation [] Abdomen: Bowel sounds normal, soft, no tenderness, no masses, no pulsatile masses. [] Skin: Warm, dry, no erythema, no rash. [] Back: No tenderness, no CVA tenderness. [] Extremities: No tenderness, no cyanosis, no clubbing, ROM intact, no edema. [] Neurologic: Alert and oriented X 3, normal motor function, normal sensory function, no focal deficits noted. [] Psychologic: Affect normal, judgement normal, mood normal. [] EKG: EKG: [] Radiology/Procedures: Radiology/Procedures: [] Heart Score: C/O Chest Pain: N/A Risk Factors: Risk Factors: DM, Current or recent (<one month) smoker, HTN, HLP, family history of CAD, obesity. Risk Scores: Score 0 - 3: 2.5% MACE over next 6 weeks - Discharge Home Score 4 - 6: 20.3% MACE over next 6 weeks - Admit for Clinical Observation Score 7 - 10: 72.7% MACE over next 6 weeks - Early Invasive Strategies Course & Med Decision Making: Course & Med Decision Making Pertinent Labs and Imaging studies reviewed. (See chart for details) Patient does appear that she could have a dental infection. I will treat her with antibiotic. She is allergic to Augmentin so we will do clindamycin 300 mg 3 times a day. She is stable for discharge at this time. [] Christyon Disclaimer: Mariano Disclaimer: This electronic medical record was generated, in whole or in part, using a voice recognition dictation system. Departure Departure: Impression: Primary Impression: Dental infection Disposition: HOME / SELF CARE / HOMELESS Condition: STABLE Referrals: TIFFANY JEFFERS (PCP) Patient Instructions: Dental Pain, [id number] Scripts Clindamycin Hcl (CLINDAMYCIN HCL) 300 Mg Capsule 1 CAP PO TID for dental infection, #21 CAP Prov: TANNER OSBORN DO 10/11/21 TANNER OSBORN DO Oct 11, 2021 08:21
== END 2021-10-11 08:29 | disposition home or self-care (01) ==
LOC: ER 07:54
DX: K04.7 Periapical abscess without sinus (principal); M19.90 Unspecified osteoarthritis, unspecified site; M79.7 Fibromyalgia; G43.909 Migraine, unspecified, not intractable, without status migrainosus; Z87.891 Personal history of nicotine dependence; Z88.1 Allergy status to other antibiotic agents; Z88.8 Allergy status to other drugs, medicaments and biological substances
CPT/HCPCS: 99283

== ENCOUNTER 2021-11-20 10:56 | Emergency (ER) | payer MEDICAID ==
[~2021-11-20] VITALS: Ht 160 cm; Wt 66.3 kg
[~2021-11-20 10:56] MED LIST changes: +CLIN-95 PO
[2021-11-20] MEDS ORDERED: IV NORMAL SALINE 1,000ML 1,000 ML IV ONE (11:45)
--- NOTE | 2021-11-20 11:59 | PHYS DOC ---
Past History Past Medical History: Anxiety, Arthritis, Depression, Fibromyalgia, Migraines, Other Additional Past Medical Histor: sacroileitis, ADHD, agoraphobia, PTSD, borderline personality disorder Past Surgical History: Tonsillectomy Additional Past Surgical Histo: uterine ablasion, fallopian tubes removed. Smoking: Cigarettes, Quit Greater Than 1 Year Alcohol Use: None Drug Use: None General Adult EDM: Chief Complaint: ANXIETY/PANIC ATTACK HPI: HPI: 36-year-old female presents with concern for serotonin syndrome and general anxiety. The patient is on high-dose venlafaxine as well as other medications. She was out of her venlafaxine for 1 week. She got her prescription back and started taking her high dose again starting yesterday. The patient also took a triptan medication for a migraine headache yesterday. She took her venlafaxine dose this morning and then 4 mg Zofran because she was nauseated. She has been feeling very warm and jittery. She took 2 p.o. Valium at home. She came in because her psychiatrist advised her to due to possibility of serotonin syndrome. She has never had this before. She has no other complaints this time . Review of Systems: Review of Systems: Constitutional: Feeling warm, damp Eyes: Denies change in visual acuity HENT: Denies nasal congestion or sore throat Respiratory: Denies cough or shortness of breath Cardiovascular: Denies chest pain or edema GI: Denies abdominal pain, nausea, vomiting, bloody stools or diarrhea : Denies dysuria Musculoskeletal: Denies back pain or joint pain Integument: Denies rash Neurologic: Denies headache, focal weakness or sensory changes Endocrine: Denies polyuria or polydipsia Lymphatic: Denies swollen glands Psychiatric: Anxious Allergies: Allergies: Allergies Coded Allergies Type Severity Reaction Last Updated Verified amoxicillin Allergy Unknown 08/25/21 Yes clavulanic acid Allergy Unknown 08/25/21 Yes gabapentin Allergy Unknown 08/25/21 Yes Physical Exam: PE: Constitutional: Well developed, well nourished, no acute distress, non-toxic appearance. [] HENT: Normocephalic, atraumatic, bilateral external ears normal, oropharynx moist, no oral exudates, nose normal. [] Eyes: PERRLA, EOMI, conjunctiva normal, no discharge. [] Neck: Normal range of motion, no tenderness, supple, no stridor. [] Cardiovascular: Heart rate 103, regular rhythm, no murmur [] Lungs & Thorax: Bilateral breath sounds clear to auscultation [] Abdomen: Bowel sounds normal, soft, no tenderness, no masses, no pulsatile masses. [] Skin: Warm, mildly moist, no erythema, no rash. [] Back: No tenderness, no CVA tenderness. [] Extremities: No tenderness, no cyanosis, no clubbing, ROM intact, no edema. [] Neurologic: Alert and oriented X 3, normal motor function, normal sensory function, no focal deficits noted. [] Psychologic: Affect concerned but appropriate, judgement normal, mood anxious. [] Current Patient Data: Vital Signs: Vital Signs Date Time Temp Pulse Resp B/P (MAP) Pulse Ox O2 Delivery O2 Flow Rate FiO2 11/20/21 11:03 98.4 90 20 147/93 (111) 99 Room Air EKG: EKG: [] Radiology/Procedures: Radiology/Procedures: [] Heart Score: C/O Chest Pain: N/A Risk Factors: Risk Factors: DM, Current or recent (<one month) smoker, HTN, HLP, family history of CAD, obesity. Risk Scores: Score 0 - 3: 2.5% MACE over next 6 weeks - Discharge Home Score 4 - 6: 20.3% MACE over next 6 weeks - Admit for Clinical Observation Score 7 - 10: 72.7% MACE over next 6 weeks - Early Invasive Strategies Course & Med Decision Making: Course & Med Decision Making Pertinent Labs and Imaging studies reviewed. (See chart for details) The patient appears to be having some mild serotonin syndrome symptoms. We ta lked about the different medications that she took and given her high-dose status and the complicating triptan medication this likely causing her symptoms. She did go from not having the medication back to high-dose without a taper. We will do basic labs, give her a liter normal saline and Ativan as needed. We will observe her to ensure her symptoms do not worsen. The patient's labs are unremarkable. The patient has only needed 2 mg of Ativan IV. She is feeling much less jittery at this time. She feels like she is not diaphoretic. She feels like she can go home. She is stable for discharge at this time. [] Dragon Disclaimer: Dragon Disclaimer: This electronic medical record was generated, in whole or in part, using a voice recognition dictation system. Departure Departure: Impression: Primary Impression: Serotonin syndrome Disposition: 01 HOME / SELF CARE / HOMELESS Condition: IMPROVED Referrals: TIFFANY JEFFERS (PCP) Patient Instructions: Serotonin Syndrome TANNER OSBORN DO Nov 20, 2021 11:59
[2021-11-20 12:12] LABS: BASO % 1 % (0-3); EOS % 0 % (0-3); HEMATOCRIT 42.7 % (36.0-47.0); HEMOGLOBIN 13.8 g/dL (12.0-15.5); LYMPH # 1.6 x10^3/uL (1.0-4.8); LYMPH % 29 % (24-48); MEAN CORPUSCULAR HEMOGLOBIN 27 pg (25-35); MEAN CORPUSCULAR HGB CONC 32 g/dL (31-37); MEAN CORPUSCULAR VOLUME 84 fL (79-100); MONO # 0.4 x10^3/uL (0.0-1.1); MONO % 8 % (0-9); NEUT # 3.5 x10^3uL (1.8-7.7); NEUT % 63 % (31-73); PLATELET COUNT 237 x10^3/uL (140-400); RED CELL DISTRIBUTION WIDTH 13.8 % (11.5-14.5); WHITE BLOOD COUNT 5.6 x10^3/uL (4.0-11.0)
[2021-11-20 12:19] LABS: CREATININE 0.7 mg/dL (0.6-1.0); GFR 95.2
[2021-11-20 12:24] LABS: ALBUMIN 4.2 g/dL (3.4-5.0); ALBUMIN/GLOBULIN RATIO 1.2 (1.0-1.7); TOTAL BILIRUBIN 0.2 mg/dL (0.2-1.0); TOTAL PROTEIN 7.6 g/dL (6.4-8.2)
[2021-11-20 12:44] VITALS: BP 123/79
== END 2021-11-20 13:21 | disposition home or self-care (01) ==
LOC: ER 10:56
DX: F41.1 Generalized anxiety disorder (principal); T43.215A Adverse effect of selective serotonin and norepinephrine reuptake inhibitors, initial encounter; M19.90 Unspecified osteoarthritis, unspecified site; M79.7 Fibromyalgia; G43.909 Migraine, unspecified, not intractable, without status migrainosus; Z87.891 Personal history of nicotine dependence; F90.9 Attention-deficit hyperactivity disorder, unspecified type; Z88.1 Allergy status to other antibiotic agents; Z88.8 Allergy status to other drugs, medicaments and biological substances; Y92.89 Other specified places as the place of occurrence of the external cause
CPT/HCPCS: 36415; 80053; 85025; 96361; 96374; 99283; J2060; J7030

== ENCOUNTER 2021-12-06 19:31 | Emergency (ER) | payer MEDICAID ==
[~2021-12-06] VITALS: Ht 160 cm; Wt 66.3 kg
[2021-12-06 19:31] VITALS: BP 132/76
--- NOTE | 2021-12-06 19:34 | PHYS DOC ---
Past History Past Medical History: Anxiety, Arthritis, Depression, Fibromyalgia, Migraines, Other Additional Past Medical Histor: sacroileitis, ADHD, agoraphobia, PTSD, borderline personality disorder Past Surgical History: Tonsillectomy Additional Past Surgical Histo: uterine ablasion, fallopian tubes removed. Smoking: Cigarettes, Quit Greater Than 1 Year Alcohol Use: None Drug Use: None General Adult EDM: Chief Complaint: SUICIDAL IDEATION HPI: HPI: " I am good to kill myself because my is an asshole.. ".. " I was here the other day for same thing.." Patient is a 36 year old female who presents with above complaints and suicidal ideation. Patient does not have a definitive plan other than jumping off a bridge or out of a tree.. Patient requesting to go to a mental hospital to get away from her . Patient has past history of depression and anxiety. Patient seen previously at our ER for similar complaint. Patient does smoke tobacco marijuana. Patient has not gotten flu vaccination or Covid vaccination. Patient denies any recent injury. No history of legal issues. Does have recent family issues of financial stressors/. Patient has had 1 previous hospitalization for suicidal ideation- 1 yr ago. Review of Systems: Review of Systems: Constitutional: Denies fever or chills Eyes: Denies change in visual acuity HENT: Denies nasal congestion or sore throat Respiratory: Denies cough or shortness of breath Cardiovascular: Denies chest pain or edema GI: Denies abdominal pain, nausea, vomiting, bloody stools or diarrhea : Denies dysuria Musculoskeletal: Denies back pain or joint pain Integument: Denies rash Neurologic: Denies headache, focal weakness or sensory changes Endocrine: Denies polyuria or polydipsia Lymphatic: Denies swollen glands Psychiatric: Complains of depression or anxiety Family History: Family History: Noncontributory to presentation Current Medications: Current Meds: See nursing for home meds Allergies: Allergies: Allergies Coded Allergies Type Severity Reaction Last Updated Verified amoxicillin Allergy Unknown 08/25/21 Yes clavulanic acid Allergy Unknown 08/25/21 Yes gabapentin Allergy Unknown 08/25/21 Yes Physical Exam: PE: Constitutional: Moderate emotional distress non-toxic appearance. [] HENT: Normocephalic, atraumatic, bilateral external ears normal, oropharynx moist, no oral exudates, nose normal. [] Eyes: PERRLA, EOMI, conjunctiva normal, no discharge, glasses. Neck: Normal range of motion, no tenderness, supple, no stridor. [] Cardiovascular:Heart rate regular rhythm, no murmur [] Lungs & Thorax: Bilateral breath sounds clear to auscultation [] Abdomen: Bowel sounds normal, soft, no tenderness, no masses, no pulsatile masses. [] Skin: Warm, dry, no erythema, no rash. [] Back: No tenderness, no CVA tenderness. [] Extremities: No tenderness, no cyanosis, no clubbing, ROM intact, no edema. [] Neurologic: Alert and oriented X 3, normal motor function, normal sensory function, no focal deficits noted. [] Psychologic: Affect anxious, judgement normal, mood depressed EKG: EKG: My interpretation EKG shows sinus rhythm at 89 bpm. No acute morphology. Time of EKG is 2022 hrs. [] Radiology/Procedures: Radiology/Procedures: Refuses chest x-ray [] Heart Score: C/O Chest Pain: N/A Risk Factors: Risk Factors: DM, Current or recent (<one month) smoker, HTN, HLP, family history of CAD, obesity. Risk Scores: Score 0 - 3: 2.5% MACE over next 6 weeks - Discharge Home Score 4 - 6: 20.3% MACE over next 6 weeks - Admit for Clinical Observation Score 7 - 10: 72.7% MACE over next 6 weeks - Early Invasive Strategies Course & Med Decision Making: Course & Med Decision Making Pertinent Labs and Imaging studies reviewed. (See chart for details) See PAT report Keep follow-up at the counseling center. Keep follow-up with primary care. Follow-up psych assessment team's recommendations. Return if any concerns. Impression: 1. Suicidal ideation 2. Depression 3. Marijuana and tobacco use 4. Drug screen positive for benzos 5. Past history of alcohol abuse- No use x 4 months [] Christyon Disclaimer: Mariano Disclaimer: This electronic medical record was generated, in whole or in part, using a voice recognition dictation system. Departure Departure: Referrals: TIFFANY JEFFERS (PCP) Mariano Disclaimer This chart was dictated in whole or in part using Voice Recognition software in a busy, high-work load, and often noisy Emergency Department environment. It may contain unintended and wholly unrecognized errors or omissions. JENSEN DIAZ MD Dec 06, 2021 19:34
[2021-12-06] MEDS ORDERED: IV RINGERS SOLUTION,LACTATED 1,000 ML IV SCH (19:45)
[2021-12-06 19:54] LABS: BARBITURATES NEG (NEG); BENZODIAZEPINES POS (NEG); CANNABINOIDS POS (NEG); COCAINE NEG (NEG); METHADONE NEG (NEG); OPIATES NEG (NEG); PHENCYCLIDINE NEG (NEG)
[2021-12-06 19:59] LABS: BASO % 0 % (0-3); EOS % 1 % (0-3); HEMOGLOBIN 13.5 g/dL (12.0-15.5); LYMPH # 2.1 x10^3/uL (1.0-4.8); LYMPH % 35 % (24-48); MEAN CORPUSCULAR HEMOGLOBIN 27 pg (25-35); MEAN CORPUSCULAR HGB CONC 32 g/dL (31-37); MEAN CORPUSCULAR VOLUME 84 fL (79-100); MONO # 0.5 x10^3/uL (0.0-1.1); MONO % 9 % (0-9); NEUT # 3.2 x10^3uL (1.8-7.7); NEUT % 55 % (31-73); PLATELET COUNT 213 x10^3/uL (140-400); RED BLOOD COUNT 5.01 x10^6/uL (3.50-5.40); RED CELL DISTRIBUTION WIDTH 13.8 % (11.5-14.5); WHITE BLOOD COUNT 5.9 x10^3/uL (4.0-11.0)
[2021-12-06 20:04] LABS: INFLUENZA A PATIENT NEGATIVE (NEGATIVE); INFLUENZA B PATIENT NEGATIVE (NEGATIVE)
[2021-12-06 20:07] LABS: AMPHETAMINE/METHAMPHETAMINE NEG (NEG)
[2021-12-06 20:10] LABS: CALCIUM 9.1 mg/dL (8.5-10.1); CREATININE 0.7 mg/dL (0.6-1.0); GFR 95.2; POTASSIUM 3.7 mmol/L (3.5-5.1)
[2021-12-06 20:22] LABS: ALBUMIN 4.1 g/dL (3.4-5.0); DIRECT BILIRUBIN 0.1 mg/dL (0.0-0.2); TOTAL BILIRUBIN 0.1 mg/dL (0.2-1.0); TOTAL PROTEIN 7.3 g/dL (6.4-8.2)
[2021-12-06 20:31] LABS: CLARITY,URINE CLEAR; COLOR,URINE YELLOW; GLUCOSE,URINE NEG (NEG); NITRITE,URINE NEG (NEG); RBC,URINE 0 /HPF (0-2); UROBILINOGEN,URINE 0.2 mg/dL (0.2 mg/dL)
[2021-12-06 20:32] LABS: BACTERIA,URINE FEW /HPF (0-FEW); SQUAMOUS EPITHELIAL CELL,UR MANY /LPF
--- NOTE | 2021-12-06 21:52 | EKG ---
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
== END 2021-12-06 23:32 | disposition home or self-care (01) ==
LOC: EEVIPCON 19:31 → ER 19:31
DX: R45.851 Suicidal ideations (principal); F32.9 Major depressive disorder, single episode, unspecified; F41.9 Anxiety disorder, unspecified; M19.90 Unspecified osteoarthritis, unspecified site; M79.7 Fibromyalgia; G43.909 Migraine, unspecified, not intractable, without status migrainosus; F17.210 Nicotine dependence, cigarettes, uncomplicated; Z20.822 Contact with and (suspected) exposure to COVID-19; Z88.1 Allergy status to other antibiotic agents; Z88.8 Allergy status to other drugs, medicaments and biological substances
CPT/HCPCS: 36415; 80048; 80076; 80307; 81001; 82550; 83690; 83735; 83880; 84443; 85025; 85610; 85730; 87086; 87147; 87428; 93005; 99285; C9803; U0003

== ENCOUNTER 2022-01-24 19:32 | Emergency (ER) | payer MEDICAID ==
[~2022-01-24] VITALS: Ht 162.6 cm; Wt 68.0 kg
[~2022-01-24 19:32] MED LIST changes: -VENL150C PO; +VENL150C3 PO
[2022-01-24] MEDS ORDERED: IV NORMAL SALINE 1,000ML 1,000 ML IV ONE (19:45)
--- NOTE | 2022-01-24 19:57 | PHYS DOC ---
Past History Past Medical History: Anxiety, Arthritis, Depression, Fibromyalgia, Migraines, Other Additional Past Medical Histor: sacroileitis, ADHD, agoraphobia, PTSD, borderline personality disorder Past Surgical History: Tonsillectomy Additional Past Surgical Histo: uterine ablasion, fallopian tubes removed. Smoking: Cigarettes, Quit Greater Than 1 Year Alcohol Use: None Drug Use: None General Adult EDM: Chief Complaint: HEADACHE HPI: HPI: 37-year-old female presents with migraine headache. The patient started to have a migraine just before noon. She has taken 2 doses of her triptan medication without relief. This usually works. She did not know what else to try so she came into the emergency room. This headache is similar to her typical headaches. She denies any falls or trauma. Review of Systems: Review of Systems: Constitutional: Denies fever or chills Eyes: Denies change in visual acuity HENT: Denies nasal congestion or sore throat Respiratory: Denies cough or shortness of breath Cardiovascular: Denies chest pain or edema GI: Nausea. Denies abdominal pain, vomiting, bloody stools or diarrhea : Denies dysuria Musculoskeletal: Denies back pain or joint pain Integument: Denies rash Neurologic: Headache. Denies focal weakness or sensory changes Endocrine: Denies polyuria or polydipsia Lymphatic: Denies swollen glands Psychiatric: Denies depression or anxiety Current Medications: Current Meds: Current Medications Medications (Trade) Dose Ordered Sig/Karon Start Time Stop Time Status Last Admin Dose Admin Sodium Chloride 1,000 ml @ 1,000 mls/hr 1X ONCE 01/24/22 19:45 01/24/22 20:44 UNV 01/24/22 19:50 1,000 MLS/HR Allergies: Allergies: Allergies Coded Allergies Type Severity Reaction Last Updated Verified amoxicillin Allergy Unknown 08/25/21 Yes clavulanic acid Allergy Unknown 08/25/21 Yes gabapentin Allergy Unknown 08/25/21 Yes Physical Exam: PE: Constitutional: Well developed, well nourished, no acute distress, non-toxic appearance. [] HENT: Normocephalic, atraumatic, bilateral external ears normal, oropharynx moist, no oral exudates, nose normal. [] Eyes: PERRLA, EOMI, conjunctiva normal, no discharge. Photophobic. [] Neck: Normal range of motion, no tenderness, supple, no stridor. [] Cardiovascular: Heart rate regular rhythm, no murmur [] Lungs & Thorax: Bilateral breath sounds clear to auscultation [] Abdomen: Bowel sounds normal, soft, no tenderness, no masses, no pulsatile masses. [] Skin: Warm, dry, no erythema, no rash. [] Back: No tenderness, no CVA tenderness. [] Extremities: No tenderness, no cyanosis, no clubbing, ROM intact, no edema. [] Neurologic: Alert and oriented X 3, normal motor function, normal sensory function, no focal deficits noted. [] Psychologic: Affect normal, judgement normal, mood normal. [] EKG: EKG: [] Radiology/Procedures: Radiology/Procedures: [] Heart Score: C/O Chest Pain: N/A Risk Factors: Risk Factors: DM, Current or recent (<one month) smoker, HTN, HLP, family history of CAD, obesity. Risk Scores: Score 0 - 3: 2.5% MACE over next 6 weeks - Discharge Home Score 4 - 6: 20.3% MACE over next 6 weeks - Admit for Clinical Observation Score 7 - 10: 72.7% MACE over next 6 weeks - Early Invasive Strategies Course & Med Decision Making: Course & Med Decision Making Pertinent Labs and Imaging studies reviewed. (See chart for details) The patient's labs are unremarkable. For her headache and given 1 L normal saline, 30 mg of Toradol, 25 mg of Benadryl, 10 mg of Reglan. After period of rest, the patient's headache has improved. She is stable for discharge at this time. [] Mariano Disclaimer: Mariano Disclaimer: This electronic medical record was generated, in whole or in part, using a voice recognition dictation system. Departure Departure: Impression: Primary Impression: Migraine headache Disposition: HOME / SELF CARE / HOMELESS Condition: IMPROVED Referrals: TIFFANY JEFFERS (PCP) Patient Instructions: Migraine Headache, [id number] TANNER OSBORN DO January 24, 2022 19:57
[2022-01-24] MEDS ORDERED: METOCLOPRAMIDE HCL 10 MG/2 ML VIAL. IVP ONE (20:00)
[2022-01-24] MEDS ORDERED: KETOROLAC 30 MG/ML VIAL. IVP ONE (20:00)
[2022-01-24] MEDS ORDERED: diphenhydrAMINE 50 MG/ML VIAL IVP ONE (20:00)
[2022-01-24 20:13] LABS: BASO # 0.1 x10^3/uL (0.0-0.2); BASO % 1 % (0-3); EOS # 0.1 x10^3/uL (0.0-0.7); EOS % 1 % (0-3); HEMATOCRIT 40.6 % (36.0-47.0); HEMOGLOBIN 13.3 g/dL (12.0-15.5); LYMPH # 2.3 x10^3/uL (1.0-4.8); LYMPH % 28 % (24-48); MEAN CORPUSCULAR HEMOGLOBIN 28 pg (25-35); MEAN CORPUSCULAR HGB CONC 33 g/dL (31-37); MEAN CORPUSCULAR VOLUME 84 fL (79-100); MONO # 0.7 x10^3/uL (0.0-1.1); MONO % 9 % (0-9); NEUT # 5.1 x10^3uL (1.8-7.7); NEUT % 62 % (31-73); PLATELET COUNT 259 x10^3/uL (140-400); RED BLOOD COUNT 4.84 x10^6/uL (3.50-5.40); RED CELL DISTRIBUTION WIDTH 15.2 % (11.5-14.5); WHITE BLOOD COUNT 8.2 x10^3/uL (4.0-11.0)
[2022-01-24 20:23] LABS: CALCIUM 9.6 mg/dL (8.5-10.1); CREATININE 0.8 mg/dL (0.6-1.0); GFR 81.2; POTASSIUM 4.1 mmol/L (3.5-5.1)
[2022-01-24 20:29] LABS: ALBUMIN 3.9 g/dL (3.4-5.0); ALBUMIN/GLOBULIN RATIO 1.2 (1.0-1.7); TOTAL BILIRUBIN 0.2 mg/dL (0.2-1.0); TOTAL PROTEIN 7.2 g/dL (6.4-8.2)
[2022-01-24 21:35] VITALS: BP 132/83
== END 2022-01-24 21:30 | disposition home or self-care (01) ==
LOC: ER 19:32
DX: G43.909 Migraine, unspecified, not intractable, without status migrainosus (principal); F41.9 Anxiety disorder, unspecified; M19.90 Unspecified osteoarthritis, unspecified site; F32.9 Major depressive disorder, single episode, unspecified; M79.7 Fibromyalgia; Z87.891 Personal history of nicotine dependence; Z88.1 Allergy status to other antibiotic agents; Z88.8 Allergy status to other drugs, medicaments and biological substances
CPT/HCPCS: 36415; 80053; 85025; 96361; 96374; 96375; 99284; J1200; J1885; J2765; J7030